=== PATIENT | male | born 1970 | race Caucasian/White ===

== ENCOUNTER → 2020-09-14 11:04 | Outpatient (BNVA) | payer OTHER, SELFPAY | PROVIDERS: PCP Internal Medicine; Visit Provider Physician Assistant Medical | DX: M50.322 Other cervical disc degeneration at C5-C6 level (principal) | CPT/HCPCS: 72050; 99203 ==

== ENCOUNTER → 2020-09-26 09:48 | Outpatient (BNVA) | payer OTHER, SELFPAY | PROVIDERS: PCP Internal Medicine; Visit Provider Physician Assistant Medical | DX: S16.1XXD Strain of muscle, fascia and tendon at neck level, subsequent encounter (principal); S29.012D Strain of muscle and tendon of back wall of thorax, subsequent encounter; S46.812D Strain of other muscles, fascia and tendons at shoulder and upper arm level, left arm, subsequent encounter; X58.XXXD Exposure to other specified factors, subsequent encounter | CPT/HCPCS: 99213 ==

== ENCOUNTER → 2020-10-05 09:34 | Outpatient (BNVA) | payer OTHER, SELFPAY | PROVIDERS: PCP Internal Medicine; Visit Provider Physician Assistant Medical | DX: M25.512 Pain in left shoulder (principal); M50.30 Other cervical disc degeneration, unspecified cervical region | CPT/HCPCS: 99214 ==

== ENCOUNTER 2020-10-10 12:46 | Outpatient (REF) | payer OTHER, SELFPAY ==
--- NOTE | 2020-10-10 12:46 | MR_ITS ---
EXAMINATION: MR CERVICAL SPINE WITHOUT CONTRAST CLINICAL INFORMATION: Left-sided shoulder pain. Lifting injury. COMPARISON: Cervical spine radiographs from 09/14/2020. TECHNIQUE: MRI of the cervical spine was obtained using routine sequences without contrast. FINDINGS: Mild degenerative retrolisthesis of C5 on C6. Otherwise, normal anatomic alignment. Advanced degenerative disc disease at C5-C6. Mild degenerative disc disease at all additional cervical levels from C2-C7. Associated mild Modic type I discogenic edema at C5-C6. No additional suspicious marrow edema. The vertebral body heights are largely maintained. No spinal cord signal abnormalities demonstrated in 2 planes. Limited evaluation of the soft tissues of the neck without demonstrated abnormalities. The flow voids of the major cervical vessels are maintained. Normal appearance of the cervicomedullary junction and visualized posterior fossa. SPINAL LEVELS: C2-C3: Mild disc-osteophyte complex. There is mild right and no left uncovertebral joint arthropathy. There is moderate right and mild left facet joint arthropathy. There is mild right and no left neural foraminal stenosis. There is no spinal canal stenosis. C3-C4: Mild disc-osteophyte complex. There is mild right and no left uncovertebral joint arthropathy. There is mild bilateral facet joint arthropathy. There is mild bilateral neural foraminal stenosis. There is no spinal canal stenosis. C4-C5: Mild disc-osteophyte complex with superimposed central disc herniation. There is mild to moderate bilateral uncovertebral joint arthropathy. There is moderate bilateral facet joint arthropathy. There is moderate bilateral neural foraminal stenosis. There is mild indentation of the ventral cord without evidence of spinal canal stenosis. C5-C6: Moderate disc-osteophyte complex. There is severe bilateral uncovertebral joint arthropathy. There is mild to moderate bilateral facet joint arthropathy. There is severe bilateral neural foraminal stenosis. There is mild spinal canal stenosis. C6-C7: Moderate disc-osteophyte complex. There is severe right and moderate left uncovertebral joint arthropathy. There is moderate bilateral facet joint arthropathy. There is severe right and moderate left neural foraminal stenosis. There is no spinal canal stenosis. C7-T1: Shallow disc-osteophyte complex. There is no uncovertebral joint arthropathy. There is mild bilateral facet joint arthropathy. There is no neural foraminal stenosis. There is no spinal canal stenosis. MR/MR cervical spine wo con IMPRESSION: Moderate multilevel degenerative spondyloarthropathy of the cervical spine as described in detail above. Most notably, there is mild spinal canal stenosis at C5-C6. Moderate to severe neural foraminal stenosis from C4-C7.
== END 2020-10-10 12:47 | disposition home or self-care (01) ==
LOC: HO.MRI 12:46
PROVIDERS: Visit Provider Internal Medicine
DX: M54.2 Cervicalgia (principal); M62.830 Muscle spasm of back
CPT/HCPCS: 72141

== ENCOUNTER → 2020-10-16 08:48 | Outpatient (BNVA) | payer OTHER, SELFPAY | PROVIDERS: Visit Provider Internal Medicine | DX: M50.10 Cervical disc disorder with radiculopathy, unspecified cervical region (principal) | CPT/HCPCS: 99214 ==

== ENCOUNTER 2020-10-30 09:53 | Outpatient (REF) | payer OTHER, SELFPAY ==
[2020-10-30 10:50] LABS: MANUAL DIFF FLAG NO
[2020-10-30 10:57] LABS: Basophils Percent Auto 0.7 % (0-2); Eosinophils Absolute Auto 0.2 X10*3/uL (0.0-0.4); Eosinophils Percent Auto 3.2 % (0-4); Hematocrit 46.5 % (42-52); Hemoglobin 15.8 g/dl (14.0-18.0); Imm Gran Abs Auto 0.02 X10*3/uL (0.00-0.03); Imm Gran Pct Auto 0.4 % (0.0-0.4); Lymphocytes Absolute Auto 2.2 X10*3/uL (1.2-4.9); Lymphocytes Percent Auto 39.7 % (20-40); Mean Corpuscular Hemoglobin 31.7 pg (27.0-33.0); Mean Corpuscular Volume 93.2 fL (80-98); Mean Platelet Volume 8.3 fL (9.4-12.4); Monocytes Absolute Auto 0.5 X10*3/uL (0.1-1.2); Neutrophils Absolute Auto 2.6 X10*3/uL (2.0-8.3); Platelet Count 254 X10*3/uL (160-400); Red Blood Count 4.99 X10*6/uL (4.60-5.80); Red Cell Distribution Width 12.6 % (11.0-16.0); White Blood Count 5.6 X10*3/uL (4.8-10.8)
[2020-10-30 11:06] LABS: Glucose Urine UA NEG (NEG); Leukocyte Esterase Urine NEG (NEG); Nitrite Urine NEG (NEG); Urine Blood TRACE (NEG); Urine Ketones NEG (NEG); Urine Protein NEG (NEG-TRACE)
[2020-10-30 11:15] LABS: Appearance Urine CLEAR; Color Urine YELLOW
[2020-10-30 11:18] LABS: RBC Urine 0-2 /HPF (0); WBC Urine 0 /HPF (0-4)
[2020-10-30 11:33] LABS: Alanine Aminotransferase 19 U/L (0-40); Albumin Level 4.6 g/dL (3.5-5.0); Alkaline Phosphatase 42 U/L (39-117); Anion Gap 15 (12-20); Aspartate Amino Transferase 25 U/L (5-37); Bilirubin Total 0.7 mg/dL (0.0-1.0); Blood Urea Nitrogen 11 mg/dL (9-16); Calcium 9.4 mg/dL (8.4-10.2); Carbon Dioxide 24 mmol/L (22-29); Chloride 104 mmol/L (96-108); Cholesterol 243 mg/dL; Estimated Glomerular Filt Rate > 60; Glucose Fasting 92 mg/dL (60-99); HDL Cholesterol 75 mg/dL; LDL Cholesterol Calculated 131 mg/dl; Potassium 4.4 mmol/l (3.3-5.1); Sodium 139 mmol/L (135-145); Total Protein 7.7 g/dL (6.5-8.0); Triglycerides 188 mg/dL
[2020-10-30 11:43] LABS: Prostate Specific Antigen 0.68 ng/mL (<0.05-4.0)
== END 2020-10-30 09:54 | disposition home or self-care (01) ==
LOC: HO.LAB 09:53
PROVIDERS: PCP Internal Medicine; Visit Provider Internal Medicine
DX: Z00.00 Encounter for general adult medical examination without abnormal findings (principal); R35.1 Nocturia; Z12.5 Encounter for screening for malignant neoplasm of prostate
CPT/HCPCS: 36415; 80053; 80061; 81001; 81003; 84153; 85025

== ENCOUNTER → 2020-10-31 09:29 | Outpatient (BNVA) | payer OTHER, SELFPAY | PROVIDERS: PCP Internal Medicine; Visit Provider Internal Medicine | DX: M79.602 Pain in left arm (principal) | CPT/HCPCS: 99213 ==

== ENCOUNTER 2020-11-01 07:00 | Outpatient (RCR) | payer OTHER, SELFPAY ==
--- NOTE | 2020-09-18 12:05 | MHC.PT.EP ---
[facility] [place] [facility] [place] [facility] [place] [facility] [address] Maria C Willoughby [address] [phone] F: [phone] F: [phone] F: [phone] F: [phone] Physical Therapy Plan of Care Date of Evaluation: 09/18/20 Date of Surgery: Diagnosis: Cervical, trapezius, and thoracic strain Assessment: 49 y/o male referred to PT with cervical, trapezius, and thoracic strain from work connection. 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 Examination shows decreased cervical AROM, decreased cervical strength and decreased strength of middle traps/lower traps/lats/shoulder flexors, noted L cervical muscle tension and impaired postural awareness. S/s consistent with strain and ?facet joint dysfunction. Recommend PT 2x/week for 3-4 weeks to address impairments, implement HEP, and optimize functional mobility. POC to include taping, STM/IASTM, lower cervical-upper thoracic joint mobilizations, scapular strengthening, and postural training. Modalities as needed. Frequency and Duration: The patient will be seen 2xweek for 3-4 weeks Short Term Goals: 2 weeks: 1. Pt will demonstrate B cervical rotation to 60 with pain < 2/10 2. Initiate HEP Longterm Goals: 4 weeks: 1. Pt will be able to don seatbelt with L UE and pain < 2/10 2. Pt will be able to lift > 40# from floor to chest 5/5 x with pain < 2/10 and proper mechanics 3. Demosntrate I of HEP and self management of sx Treatment Plan: Modalities to reduce pain, spasms and effusion. Manual therapy to restore motion and function. Therapeutic exercise to improve strength and flexibility. Neuromuscular re-education for posture and balance. Therapeutic activities to return to functional activities of daily living. Please sign and return to therapist. Thank you for your referral.
== END 2020-12-20 09:52 | disposition other institution (70) ==
LOC: HO.PTWFD 07:00
PROVIDERS: PCP Internal Medicine; Visit Provider Physician Assistant Medical
DX: S16.1XXD Strain of muscle, fascia and tendon at neck level, subsequent encounter (principal); S29.012D Strain of muscle and tendon of back wall of thorax, subsequent encounter; S46.819D Strain of other muscles, fascia and tendons at shoulder and upper arm level, unspecified arm, subsequent encounter; X58.XXXD Exposure to other specified factors, subsequent encounter; Y99.0 Civilian activity done for income or pay
CPT/HCPCS: 97012; 97014; 97035; 97110; 97140; 97161

== ENCOUNTER → 2020-11-13 11:41 | Outpatient (BNVA) | payer OTHER, SELFPAY | PROVIDERS: PCP Internal Medicine; Visit Provider Internal Medicine | DX: M79.601 Pain in right arm (principal); M54.10 Radiculopathy, site unspecified; M54.2 Cervicalgia | CPT/HCPCS: 99213 ==

== ENCOUNTER → 2020-11-30 08:27 | Outpatient (BNVA) | payer OTHER, SELFPAY | PROVIDERS: PCP Internal Medicine; Visit Provider Internal Medicine | DX: M79.603 Pain in arm, unspecified (principal); M50.322 Other cervical disc degeneration at C5-C6 level | CPT/HCPCS: 99214 ==

== ENCOUNTER → 2020-12-20 10:07 | Outpatient (BNVA) | payer OTHER, SELFPAY | PROVIDERS: PCP Internal Medicine; Visit Provider Internal Medicine | DX: M54.2 Cervicalgia (principal); G54.9 Nerve root and plexus disorder, unspecified | CPT/HCPCS: 99213 ==

== ENCOUNTER → 2021-01-18 10:17 | Outpatient (BNVA) | payer OTHER, SELFPAY | PROVIDERS: PCP Internal Medicine; Visit Provider Internal Medicine | DX: M51.16 Intervertebral disc disorders with radiculopathy, lumbar region (principal) | CPT/HCPCS: 99213 ==

== ENCOUNTER 2022-05-12 09:53 | Outpatient (REF) | payer OTHER, SELFPAY ==
[2022-05-12 10:07] LABS: MANUAL DIFF FLAG NO
[2022-05-12 10:42] LABS: Basophils Percent Auto 0.7 % (0-2); Eosinophils Absolute Auto 0.2 X10*3/uL (0.0-0.4); Eosinophils Percent Auto 3.7 % (0-4); Hematocrit 45.6 % (42.0-52.0); Hemoglobin 15.5 g/dl (14.0-18.0); Imm Gran Abs Auto 0.03 X10*3/uL (0.00-0.03); Imm Gran Pct Auto 0.5 % (0.0-0.4); Lymphocytes Percent Auto 33.1 % (20-40); Mean Corpuscular Hemoglobin 31.1 pg (27.0-33.0); Mean Corpuscular Volume 91.4 fL (80.0-98.0); Mean Platelet Volume 8.3 fL (9.4-12.4); Monocytes Absolute Auto 0.5 X10*3/uL (0.1-1.2); Monocytes Percent Auto 8.5 % (2-11); Neutrophils Absolute Auto 3.2 x10*3/uL (2.0-8.3); Neutrophils Percent Auto 53.5 % (45-73); Platelet Count 231 X10*3/uL (160-400); Red Blood Count 4.99 X10*6/uL (4.60-5.80); Red Cell Distribution Width 12.3 % (11.0-16.0)
[2022-05-12 11:11] LABS: Alanine Aminotransferase 24 U/L (0-40); Albumin Level 4.6 g/dL (3.5-5.0); Alkaline Phosphatase 46 U/L (39-117); Anion Gap 15 (12-20); Aspartate Amino Transferase 26 U/L (5-37); Bilirubin Total 0.7 mg/dL (0.0-1.0); Blood Urea Nitrogen 12 mg/dL (9-16); Calcium 9.5 mg/dL (8.4-10.2); Carbon Dioxide 24 mmol/L (22-29); Chloride 107 mmol/L (96-108); Cholesterol 261 mg/dL; Estimated Glomerular Filt Rate > 60; Glucose Random 98 mg/dL (60-115); HDL Cholesterol 69 mg/dL; LDL Cholesterol Calculated 152 mg/dl; Potassium 4.5 mmol/L (3.3-5.1); Sodium 141 mmol/L (135-145); Total Protein 7.6 g/dL (6.5-8.0); Triglycerides 201 mg/dL; Uric Acid 8.5 mg/dL (3.4-7.0)
[2022-05-12 11:22] LABS: Prostate Specific Antigen 0.69 ng/mL (<0.05-4.0)
== END 2022-05-12 09:54 | disposition home or self-care (01) ==
LOC: HO.LAB 09:53
PROVIDERS: PCP Internal Medicine; Visit Provider Internal Medicine
DX: Z00.00 Encounter for general adult medical examination without abnormal findings (principal); Z12.5 Encounter for screening for malignant neoplasm of prostate
CPT/HCPCS: 36415; 80053; 80061; 84153; 84550; 85025

== ENCOUNTER 2022-06-05 05:57 | Day surgery (SDC) | payer OTHER, SELFPAY ==
[2022-05-29 15:35] VITALS: BMI 29.2
--- NOTE | 2022-06-04 09:48 | P.CONAN_ITS ---
Documented by User: Toshia Ames NP 06/04/22 09:49 HPI - Anesthesia Eval Consult details Narrative: 51yo M for Right Hernia Repair Inguinal, Hernia Repair Umbilical [facility] Active Problems Active Problems: All Active Problems (Updated 05/12/22 @ 09:53 by Aniceto Justice MD) HTN (hypertension) (Acute) Right groin hernia (Acute) Umbilical hernia (Acute) Obstructive sleep apnea on CPAP (Acute) Spasm of back muscles (Acute) Past Medical History Medical History HTN (hypertension) Obstructive sleep apnea on CPAP Spasm of back muscles Surgical History Surgical History (Updated 06/05/22 @ 06:13 by Zoya Baird RN) History of repair of ACL Social History Social History Alcohol intake: current Alcohol intake frequency: a few times a week Patient Tobacco Use Status: Never used Tobacco Meds Allergies Allergy/AdvReac Type Severity Reaction Status Date / Time No Known Allergies Allergy Verified 06/05/22 06:13 [No Known Allergies*] Home Medications Medication Instructions Recorded Confirmed Last Taken Type lisinopril 10 mg tablet 10 mg PO DAILY 05/12/22 05/12/22 Unknown History Exam Exam Date and Time: June 04, 2022 0948 Height,Weight and Vital Signs: Height 5 ft 11 in Weight 95.254 kg Pertinent Lab Results Pertinent Lab Results: Laboratory Tests 05/12/22 05/12/22 10:06 10:06 WBC 6.0 Hgb 15.5 Hct 45.6 Plt Count 231 Sodium 141 Potassium 4.5 Chloride 107 Carbon Dioxide 24 BUN 12 Creatinine 1.10 Assessment and Plan Assessment Anesthesia Assessment: Chart Reviewed Documented by User: Johnny Will MD 06/09/22 17:55 PMFSH Past Medical History Medical History HTN (hypertension) Obstructive sleep apnea on CPAP Spasm of back muscles Family History Family history of problems with anesthesia: No Surgical History Surgical History (Updated 06/05/22 @ 06:13 by Zoya Barid RN) History of repair of ACL History of Problems with Anesthesia: No Social History Social History Alcohol intake: current Alcohol intake frequency: a few times a week Patient Tobacco Use Status: Never used Tobacco Meds Allergies Allergy/AdvReac Type Severity Reaction Status Date / Time No Known Allergies Allergy Verified 06/05/22 06:13 [No Known Allergies*] Home Medications Medication Instructions Recorded Confirmed Last Taken Type lisinopril 10 mg tablet 10 mg PO DAILY 05/12/22 05/12/22 Unknown History Exam Airway Mallampati Class: III TM Dist: >3cm Neck ROM: Full Loose/Missing/Broken Teeth: Yes (Poor dentition ) Heart: S1,S2 Lungs: b/l breath sounds Assessment and Plan Assessment Anesthesia Assessment: Anesthesia Plan Discussed Final Anesthetic Review Family History of Problems with Anesthesia: No History of Problems with Anesthesia: No NPO: Yes ASA Class: II Final Preanesthetic Review: Meds/Allgs Chart Reviewed, Consent Obtained/Reviewed and Anes Risks/Benef Reviewed Patient Risk: Intermediate Procedure Risk: Intermediate Anesthetic Plan Anesthetic Plan: MAC: (Gen Backup ) Disposition: Standard PACU
[2022-06-05] VITALS (7 sets, daily range): BP systolic 140–151; BP diastolic 87–106; PULSE 77–88; RESP 12–18; TEMP 36.3–36.8; O2SAT 95–100
[2022-06-05] MEDS: Lactated Ringers 1,000 ML 100 ML IVCONT (06:29)
[2022-06-05] MEDS: Heparin Sodium,Porcine 5,000 UNIT/ML VIAL 5000 UNIT SUBCUT (06:36)
--- NOTE | 2022-06-05 07:04 | MHC.SHP ---
Pre-Procedural Eval Section A Date of Service: 06/05/22 The patient is an INPATIENT: No The History & Physical has been completed within 30 days and I have reviewed it.: Yes Section B Chief Complaint: umbilical and inguinal hernias Allergies: Allergies Allergy/AdvReac Type Severity Reaction Status Date / Time No Known Allergies Allergy Verified 06/05/22 06:13 [No Known Allergies*] Plan I have reviewed the history and physical and performed a pertinent physical examination on my patient. No changes have occurred unless specified.
--- NOTE | 2022-06-05 07:09 | P.OP_ITS ---
Operative Note Operative Note Date of Service: 06/05/22 Narrative: Pre Op Diagnosis: RIGHT INGUINAL HERNIA; UMBILICAL HERNIA Post Op Diagnosis: Same Procedure: 1) Open repair of RIGHT Inguinal hernia repair with mesh, 2) Umbilical hernia repair Surgeon: Aniceto Justice MD Assist: Anesthesia: EBL: 5cc Specimen: Findings: Indications: The patient presented with a symptomatic right inguinal hernia. He was also noted to have an umbilical hernia which we discussed in wanted to have it repaired at the same time. The options including continued observation versus operative repair and 2nd opinion were discussed. The inherent risks to open inguinal hernia repair were discussed and options of laparoscopic or robotic/MIS repair were discussed. These risks of hernia surgery include, but are not limited to: Bleeding, infection, hernia recurrence especially if weight gain or postoperative instructions are not followed, nerve entrapment, chronic pain, mesh complications that could require reoperation. The patient seemed to understand all of these options, had their questions answered and wanted to proceed. Procedure: The patient was identified in the preoperative holding area by myself and the operative site marked by me confirming a RIGHT inguinal hernia. 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 The operative field hair had been clipped in preop holding. The patient was again identified in the operating suite and placed supine on the table. See anesthesia notes for full details regarding anesthesia care and management. An appropriate time-out was performed confirming the operative site and procedure. The patient was then widely prepped and draped in the usual manner using chlorhexidine. An ileoinguinal nerve block was performed using local mix of lidocaine & ropivicaine and a standard right inguinal herniorrhaphy incision made sharply through the skin. Dissection was carried through all layers using electric cautery for dissection and hemostasis. Additional local was infiltrated is the external oblique aponeurosis, in the external oblique aponeurosis opened sharply in the direction of its fibers to the external ring. The ilioinguinal nerve was identified and preserved/sacrificed through the dissection. The cord was mobilized at the level of the pubic tubercle and surrounded with hernia tape. The floor was inspected and a direct inguinal hernia found. Careful dissection of the spermatic cord to preserve the vessels and vas was performed to assess for indirect hernia sac, which was not present. The direct hernia sac was highly dissected, its contents reduced and the floor imbricated to restore normal anatomy and a standard Hiram tension-free herniorrhaphy performed using polypropylene mesh that was sutured to the pubic tubercle and inguinal ligament using a 2-0 Polysorb. A new internal ring was made using 2-0 polypropylene suture. The new internal ring was snug enough that it could just accommodate a tip of a hemostat. Next, the operative field was inspected for hemostasis which was good, the external oblique aponeurosis was closed with a running 0 Polysorb suture, subcutaneous tissues closed with 3-0 Polysorb and skin closed with running 4-0 Monocryl subcuticular suture. At the completion of the right inguinal hernia repair, attention was directed to the umbilical hernia After infiltrating local, an infraumbilical curvilinear incision was made sharply and carried down to the anterior fascia and umbilical ring. The umbilical ring was circumferentially dissected and the hernia dissected off the umbilical dermal skin carefully to avoid injuring the skin. The hernia contents was reduced and the defect noted to be 5mm with viable properitoneal fat present, so it was repaired with 0 polypropylene [id number]. After inspecting for hemostasis, the umbilical dermis was tacked down to the fascia, subcutaneous tissues closed with 3-0 Polysorb and skin closed with a 4-0 Monocryl subcuticular suture. The abdomen was washed and dried, Mastisol and Steri-Strips applied followed by a sterile dressing. Patient tolerated the procedure well was sent to the recovery area in stable condition. All sponge and instrument counts were correct x2. At the patient's request, I contact ___ and apprise them by telephone of the procedure. Instructions regarding activity and pain management were reviewed. Questions were answered.
[2022-06-05] MEDS: oxyCODONE HCl Immed Release 5 MG TABLET PO (09:34)
[2022-06-05] MEDS: Acetaminophen 325 MG TABLET 650 MG PO (09:34)
== END 2022-06-05 10:23 | disposition home or self-care (01) ==
PROVIDERS: PCP Internal Medicine; Visit Provider Surgery
PROC: (CPT 49505; principal; 2022-06-05 07:30)
PROC: (CPT 49505; 2022-06-05 07:30)
DX: K40.90 Unilateral inguinal hernia, without obstruction or gangrene, not specified as recurrent (principal); K42.9 Umbilical hernia without obstruction or gangrene; G47.33 Obstructive sleep apnea (adult) (pediatric); I10 Essential (primary) hypertension; M62.830 Muscle spasm of back; Z79.899 Other long term (current) drug therapy; Z99.89 Dependence on other enabling machines and devices
CPT/HCPCS: 49505; 49585; C1781; J0690; J1100; J1885; J2250; J2405; J2795; J3010

== ENCOUNTER 2022-12-12 13:05 | Day surgery (SDC) | payer OTHER, SELFPAY ==
[2022-12-12 13:30] VITALS: BMI 26.4
[2022-12-12 13:47] VITALS: BP 159/114; PULSE 95; RESP 16; TEMP 36.8; O2SAT 95
--- NOTE | 2022-12-12 13:53 | P.CONAN_ITS ---
[facility] Active Problems Active Problems: All Active Problems (Updated 06/04/22 @ 09:48 by Toshia Ames NP) Right groin hernia (Acute) Umbilical hernia (Acute) Past Medical History Medical History HTN (hypertension) Obstructive sleep apnea on CPAP Spasm of back muscles Family History Family history of problems with anesthesia: No Surgical History Surgical History History of repair of ACL History of Problems with Anesthesia: No Social History Social History Alcohol intake: current Alcohol intake frequency: a few times a week Patient Tobacco Use Status: Never used Tobacco Use of substances other than those prescribed or required for medical reasons: No Are you DNR?: No Advance Directives: No Advance Directives Information Provided: Yes Meds Allergies Allergy/AdvReac Type Severity Reaction Status Date / Time No Known Allergies Allergy Verified 06/18/22 14:55 [No Known Allergies*] Active Medications: Current Medications Sodium Biphosphate/Sodium Phosphate (Sodium Phosphate,Bee-Dibasic 133 Ml Enema) 133 ml [place] ONCE PRN PRN Reason: Poor Colonoscopy Prep Results Home Medications Medication Instructions Recorded Confirmed Last Taken Type lisinopril 10 mg tablet 10 mg PO DAILY 05/12/22 06/18/22 Unknown History Exam Exam Date and Time: December 12, 2022 1353 Height,Weight and Vital Signs: Height 5 ft 11 in Weight 86.183 kg Last Vital Signs Temp 98.3 F 12/12/22 13:47 Pulse 95 12/12/22 13:47 Resp 16 12/12/22 13:47 BP 159/114 H 12/12/22 13:47 Pulse Ox 95 12/12/22 13:47 O2 Del Method 12/12/22 13:47 Airway Mallampati Class: II TM Dist: >3cm Neck ROM: Full Loose/Missing/Broken Teeth: No Heart: rrr Lungs: cta Assessment and Plan Assessment Anesthesia Assessment: Anesthesia Plan Discussed Final Anesthetic Review Family History of Problems with Anesthesia: No History of Problems with Anesthesia: No NPO: Yes ASA Class: II Final Preanesthetic Review: No Changes in Pt Med Stat and Consent Obtained/Reviewed Patient Risk: Low Procedure Risk: Low Anesthetic Plan Anesthetic Plan: MAC: Disposition: Standard PACU
--- NOTE | 2022-12-12 13:54 | PC.NURSE ---
as discussed with md. Young on patient's bp, as per patient did not take lisinopril as discussed
[2022-12-12 15:53] VITALS: BP 140/97; PULSE 80; RESP 18; TEMP 36.3; O2SAT 96
--- NOTE | 2022-12-12 15:56 | PM.OP ---
Brief Operative Note Date of Service: 12/12/22 Pre-op diagnosis: Screening Post-op diagnosis: other (Diverticulosis) Procedure: Colonoscopy to ceum and TI Surgeon: Mikey Randall Anesthesia: MAC Was an Registration Representative used for this Procedure?: No Estimated blood loss (mL): 0 Pathology: none sent Condition: stable Disposition: PACU
[2022-12-12 16:08] VITALS: BP 157/97; PULSE 77; RESP 18; TEMP 36.6; O2SAT 98
--- NOTE | 2022-12-13 01:36 | OP_ITS ---
SURGEON: Mikey Randall MD INDICATIONS: The patient presents for evaluation of colon cancer screening. Full consent has been obtained from him for this, including risks of bleeding and perforation. PREOPERATIVE DIAGNOSIS: Colon cancer screening. POSTOPERATIVE DIAGNOSIS: PROCEDURE PERFORMED: Colonoscopy to the cecum and terminal ileum. ESTIMATED BLOOD LOSS: COMPLICATIONS: ANESTHESIA: Medication used, monitored anesthesia care. ASSISTANTS: SPECIMENS: POSTOPERATIVE DIAGNOSES: Colon cancer screening, occasional sigmoid diverticulosis, and minimal internal hemorrhoids. DESCRIPTION OF PROCEDURE: The patient was placed in the left lateral decubitus position. The digital rectal exam revealed no abnormalities. The Olympus video pediatric colonoscope was entered into the rectum and advanced easily to the cecum. Once in the cecum, I did identify normal-appearing cecal pouch with appendiceal orifice and a normal-appearing ileocecal valve. The terminal ileum was cannulated and appeared normal. The scope was withdrawn back in the colon. The entire cecum and ileocecal valve appeared normal. The scope was slowly withdrawn assessing all mucosal surfaces carefully. Preparation was excellent. I did not visualize any polyps, colitis, or angiodysplasia. There were occasional diverticula noted in the sigmoid colon. In the rectum, the scope was retroflexed visualizing minimal internal hemorrhoids, but no other pathology. The rectal mucosa appeared normal. Scope was straightened and withdrawn from the patient. He tolerated the procedure well and was returned to recovery area in stable condition. IMPRESSION: 1. Occasional sigmoid diverticulosis. 2. Minimal internal hemorrhoids. 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 He will otherwise see me on a p.r.n. basis. MD GETACHEW Cole/ESTHER / [phone] MTDD
== END 2022-12-12 16:40 | disposition home or self-care (01) ==
PROVIDERS: PCP Internal Medicine; Visit Provider Internal Medicine
PROC: 0DJD8ZZ Inspection of Lower Intestinal Tract, Via Natural or Artificial Opening Endoscopic (ICD-10-PCS; CPT 45378; principal; 2022-12-12 14:40)
DX: Z12.11 Encounter for screening for malignant neoplasm of colon (principal); K57.30 Diverticulosis of large intestine without perforation or abscess without bleeding; K64.8 Other hemorrhoids; I10 Essential (primary) hypertension; G47.33 Obstructive sleep apnea (adult) (pediatric); Z99.89 Dependence on other enabling machines and devices; Z79.899 Other long term (current) drug therapy
CPT/HCPCS: 45378

== ENCOUNTER → 2023-08-05 09:38 | Outpatient (BNVA) | payer OTHER, SELFPAY | PROVIDERS: PCP Internal Medicine; Visit Provider Physician Assistant | DX: Z48.815 Encounter for surgical aftercare following surgery on the digestive system (principal) | CPT/HCPCS: 99203 ==

== ENCOUNTER 2023-08-11 13:44 | Outpatient (AMB) | payer OTHER, SELFPAY ==
--- NOTE | 2023-08-11 13:45 | A.OFFVIS_ITS ---
Intake Vital Signs 08/11/23 13:51 Height 5 ft 11 in Weight 197 lb 1.492 oz BMI 27.5 BP 151/92 H Blood Pressure Location Lt brachial Position Sitting Pulse 78 Pulse Source Pulse Oximeter Temp 97.0 F Temp Source Temporal Artery Scan Intake Visit Reasons: ? 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 work and felt a pop in groin area and states umbilicus seems to be protruding Geographic Information Systems Analyst Required: No Photolith Operator: Photolith Operator offered & declined Allergies No Known Allergies [No Known Allergies*] Allergy (Verified 06/18/22 14:55) Medication List - Last Reconciled 08/11/23 by Aniceto Justice MD ibuprofen 600 mg PO Q6H lisinopril 10 mg PO DAILY HPI HPI Comments History of Present Illness Details The patient is a 52-year-old gentleman who 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 The patient had an incidental umbilical hernia that was pointed out and he wanted it repaired at the same time. Primary closure of the umbilical hernia without mesh was performed due to a 6 mm defect; open right inguinal hernia with Bard polypropylene mesh was used to repair a direct inguinal hernia with Hiram repair. 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 He was evaluated at [facility] and sent here given ongoing pain. Patient reports pain with activity and coughing. We discussed options at today's visit and the patient noted that he feels comfortable returning to work at full duty and declined a work note. We discussed our recommendation for light duty, however he declined. [facility] Medical History (Updated 08/11/23 @ 14:27 by Aniceto Justice MD) HTN (hypertension) Obstructive sleep apnea on CPAP Spasm of back muscles Surgical History Hx of bilateral inguinal hernia repair History of repair of ACL Social History Alcohol intake: current Alcohol intake frequency: a few times a week Patient Tobacco Use Status: Never used Tobacco Review of Systems Const All systems reviewed & are unremarkable except as noted in HPI and below Reports as per HPI Physical Exam Vital Signs: Last Vital Signs Temp 97.0 F 08/11/23 13:51 Pulse 78 08/11/23 13:51 BP 151/92 H 08/11/23 13:51 BMI result Body Mass Index 27.5 On exam he is nontoxic The patient is examined standing and on Valsalva, I do not appreciate a recurrence at his umbilicus. He reports subjective tenderness to palpation. Patient Valsalva it several times and while there is some thickening in the right groin in some reported tenderness, I do not appreciate a hernia recurrence at this time. The patient reports maximal tenderness near his new internal ring. Assessment & Plan Assessment & Plan (1) Right groin pain: Code(s): R10.31 - Right lower quadrant pain Plan I reviewed options with the patient and offered a work note limiting him to light duty, however, after discussion, he stated that he felt he could return to full duty without restriction. We discussed a course of NSAIDs and I sent a prescription for ibuprofen, 600 mg q.6 hours to be taken with extra-strength Tylenol. Possibility of stomach irritation was discussed and the patient understands he needs to take this medication with food. I reassured the patient that while I do not feel any hernia recurrence on today's exam, an occult injury could be present and I have recommended a CT with Valsalva and have ordered at and will see him afterwards to review the CT. If the patient clinically worsens or changes his mind regarding return to work, he will contact the office otherwise, will see him for 30 minute appointment after his CT with Valsalva is performed. Orders: Orders CT abdomen pelvis wo IV con Today R10.31 - Right lower quadrant pain Medications: New ibuprofen Take with 2 extra-strength Tylenol/acetaminophen 600 mg PO Q6H 30 tabs 0RF Pain Coding Level of Care Code Est Pt Level 4 (87214) Diagnoses Right groin pain R10.31
[2023-08-11 13:51] VITALS: BP 151/92; PULSE 78; TEMP 36.1; BMI 27.5
== END 2023-08-11 14:31 | disposition home or self-care (01) ==
PROVIDERS: PCP Internal Medicine; Referring Provider Physician Assistant; Visit Provider Surgery
DX: R10.31 Right lower quadrant pain (principal)
CPT/HCPCS: 99214

== ENCOUNTER → 2023-08-11 13:44 | Outpatient (BNVA) | payer OTHER, SELFPAY | PROVIDERS: PCP Internal Medicine; Referring Provider Physician Assistant; Visit Provider Surgery | DX: R10.31 Right lower quadrant pain (principal) | CPT/HCPCS: 99212 ==

== ENCOUNTER 2023-09-14 15:04 | Outpatient (REF) | payer OTHER, SELFPAY ==
--- NOTE | ~2023-09-14 | CT_ITS ---
EXAMINATION: CT ABDOMEN AND PELVIS WITHOUT CONTRAST CLINICAL INFORMATION: Right lower quadrant pain. COMPARISON: None available. TECHNIQUE: Multidetector volumetric imaging was performed from the superior aspect of the liver through the pubic symphysis. Sagittal and coronal reformatted images were obtained on the technologist's workstation. This CT examination was performed using dose optimization techniques as appropriate, variously including the following: *Automated exposure control *Adjustment of mA and/or kV according to patient size (this includes techniques or standardized protocols for targeted exams where dose is matched to indication/reason for exam; i.e. extremities or head) *Use of iterative reconstruction technique DLP: 531 mGy-cm FINDINGS: LUNG BASES: Small hiatal hernia. LIVER, GALLBLADDER, AND BILIARY TREE: The liver is decreased in attenuation. No biliary ductal dilatation is present. The gallbladder is contracted. PANCREAS: Unremarkable. SPLEEN: Unremarkable. ADRENAL GLANDS: Unremarkable. KIDNEYS AND URETERS: The kidneys are normal in size, shape, and attenuation. Punctate nonobstructing calculus lower pole left kidney. No hydronephrosis seen. No perinephric stranding. BLADDER: Unremarkable. GASTROINTESTINAL TRACT: Subtle inflammatory changes surrounding a diverticulum of the descending colon. No small bowel obstruction. ABDOMINAL WALL: Fat-containing left inguinal hernia. Postsurgical changes from prior right inguinal hernia repair. No recurrent hernia. LYMPH NODES: No bulky abdominal or pelvic lymphadenopathy. VASCULAR: Normal caliber abdominal aorta. PELVIC VISCERA: Enlarged prostate gland. OSSEOUS STRUCTURES: No destructive bone lesions. CT/CT abdomen pelvis wo IV con IMPRESSION: Fat-containing left inguinal hernia. Punctate nonobstructing left renal calculus. No hydronephrosis. Hepatic steatosis.
== END 2023-09-14 15:05 | disposition home or self-care (01) ==
LOC: HO.CT 15:04
PROVIDERS: PCP Internal Medicine; Visit Provider Surgery
DX: R10.31 Right lower quadrant pain (principal)
CPT/HCPCS: 74176

== ENCOUNTER 2023-09-16 14:03 | Outpatient (AMB) | payer OTHER, SELFPAY ==
--- NOTE | 2023-09-16 14:08 | MHC.OFFVIS ---
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 The patient had an incidental umbilical hernia that was pointed out and he wanted it repaired at the same time. Primary closure of the umbilical hernia without mesh was performed due to a 6 mm defect; open right inguinal hernia with Bard polypropylene mesh was used to repair a direct inguinal hernia with Hiram repair. 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 He was evaluated at [facility] and sent here given ongoing pain. Since his visit, he is take in the prescribed ibuprofen and notes some interval improvement but still occasional sharp pain that is spontaneous and not always related to exertion. He denies any left inguinal pain at the time of the incident and denies any left inguinal pain today. He is here today, 09/16/[address] of the abdomen and pelvis. Since last visit, he reports [facility] Medical History (Updated 09/16/23 @ 14:28 by Aniceto Justice MD) HTN (hypertension) Obstructive sleep apnea on CPAP Spasm of back muscles Surgical History Hx of bilateral inguinal hernia repair History of repair of ACL Social History Alcohol intake: current Alcohol intake frequency: a few times a week Patient Tobacco Use Status: Never used Tobacco Physical Exam On exam he is nontoxic The patient is examined standing and on Valsalva, I do not appreciate a recurrence at his umbilicus. He reports subjective tenderness to palpation. Patient Valsalva'd it several times and while there is some thickening in the right groin in some reported tenderness, I do not appreciate a RIGHT inguinal hernia recurrence at this time. The previous tenderness has improved on exam & per pt. A new LEFT inguinal hernia that's reducible & nontender is noted on exam with the patient standing Results Reviewed Results Reviewed: 09/14/23 CT A/P images & report are reviewed: IMPRESSION: Fat-containing left inguinal hernia. Punctate nonobstructing left renal calculus. No hydronephrosis. Hepatic steatosis Assessment & Plan Assessment & Plan (1) Right groin pain: Code(s): R10.31 - Right lower quadrant pain (2) Obstructive sleep apnea on CPAP: Code(s): G47.33 - Obstructive sleep apnea (adult) (pediatric); Z99.89 - Dependence on other enabling machines and devices (3) HTN (hypertension): Code(s): I10 - Essential (primary) hypertension (4) Left inguinal hernia: Code(s): K40.90 - Unilateral inguinal hernia, without obstruction or gangrene, not specified as recurrent Plan The patient notes interval improvement, but the RIGHT groin pain presenting after exertion at work & possible RIGHT groin strain inciting injury may have caused injury that may progress. While it is improved with NSAIDs and avoiding heavy activity, explained that I cannot guarantee that it will not flare and need to consider additional intervention such as pain management injection. Given this, options of management were discussed: I have recommended that the patient contact me if he clinically worsens and we can always consider pain management for an injection regarding an ileoinguinal block if the pain interferes with daytime activities or nighttime sleeping. In the interim, the patient seems to have developed a small asymptomatic left inguinal hernia. It is unclear whether not this was related to the injury described above. We discussed the pros and cons of repair versus continued observation and will continue to observe the left side for now. If the patient has worsening pain with either inguinal area, he will contact me, otherwise all see him back in 3 months for 30 minute visit. Coding Level of Care Code Est Pt Level 4 (02131) Diagnoses Right groin pain R10.31 Obstructive sleep apnea on CPAP G47.33; Z99.89 HTN (hypertension) I10 Left inguinal hernia K40.90
[2023-09-16 14:12] VITALS: BP 157/97; PULSE 78; TEMP 35.4; O2SAT 99; BMI 28.2
== END 2023-09-16 14:28 | disposition home or self-care (01) ==
PROVIDERS: PCP Internal Medicine; Visit Provider Surgery
DX: R10.31 Right lower quadrant pain (principal); G47.33 Obstructive sleep apnea (adult) (pediatric); Z99.89 Dependence on other enabling machines and devices; I10 Essential (primary) hypertension; K40.90 Unilateral inguinal hernia, without obstruction or gangrene, not specified as recurrent
CPT/HCPCS: 99214

== ENCOUNTER → 2023-09-16 14:03 | Outpatient (BNVA) | payer OTHER, SELFPAY | PROVIDERS: PCP Internal Medicine; Visit Provider Surgery | DX: R10.31 Right lower quadrant pain (principal); K40.90 Unilateral inguinal hernia, without obstruction or gangrene, not specified as recurrent; I10 Essential (primary) hypertension; G47.33 Obstructive sleep apnea (adult) (pediatric); Z99.89 Dependence on other enabling machines and devices | CPT/HCPCS: 99212 ==

== ENCOUNTER 2024-03-21 12:03 | Emergency (ER) | payer OTHER, SELFPAY ==
--- NOTE | ~2024-03-21 | XR_ITS ---
EXAMINATION: XR CHEST CLINICAL INFORMATION: Dyspnea. Hypertension. COMPARISON: Chest radiograph dated 07/21/2011. TECHNIQUE: 2 views of the chest were obtained. FINDINGS: Heart size is normal. Both lungs are clear. There is no pleural effusion. No pneumothorax. No acute osseous abnormality. Mild degenerative changes of thoracic spine. XR/XR chest 2V IMPRESSION: No acute cardiopulmonary disease.
--- NOTE | ~2024-03-21 | CT_ITS ---
EXAMINATION: CT ANGIOGRAM OF THE CHEST WITH AND WITHOUT CONTRAST (CT PULMONARY ANGIOGRAM FOR PE) CLINICAL INFORMATION: Reason for Exam chest pain, dyspnea, tachycardic, elevated ddimer COMPARISON: Chest radiograph dated 03/21/2024. TECHNIQUE: Prior to contrast administration, noncontrast localization images were obtained. Subsequently, multidetector volumetric imaging was performed from the thoracic inlet to below the diaphragms following the administration of 80 mL Omnipaque 350 intravenous contrast. No contrast reaction reported Sagittal, coronal, and MIP oblique sagittal reformatted images were obtained on the CT workstation, uploaded to PACS, and reviewed. This CT examination was performed using dose optimization techniques as appropriate, variously including the following: *Automated exposure control *Adjustment of mA and/or kV according to patient size (this includes techniques or standardized protocols for targeted exams where dose is matched to indication/reason for exam; i.e. extremities or head) *Use of iterative reconstruction technique Total exam dose-length product 346 mGy-cm FINDINGS: QUALITY OF STUDY/CONTRAST BOLUS: Satisfactory. PULMONARY ARTERIES: No pulmonary emboli. THORACIC AORTA: No aneurysm. LUNG: No focal consolidation, nodules or masses. The trachea and central airways are widely patent. PLEURA: No pleural effusion or pneumothorax. MEDIASTINUM: Normal heart size. No pericardial effusion. No hilar or mediastinal lymphadenopathy. No evidence of septal bowing or right heart strain. The thyroid gland is normal in appearance. CORONARY ARTERY CALCIFICATION: Mild coronary artery calcification is noted. CHEST WALL/AXILLA: No axillary or internal mammary lymphadenopathy. OSSEOUS STRUCTURES: No acute or suspicious osseous abnormality. UPPER ABDOMEN: Unremarkable. No reflux of contrast into the hepatic veins to suggest elevated right heart pressures. CT/CT angio chest PE protocol IMPRESSION: No pulmonary embolism. The lungs are clear. No pleural effusion. VTE: negative
[2024-03-21 12:20] VITALS: BP 160/110; BP 210/140; PULSE 101; RESP 20; TEMP 36.7; O2SAT 97; BMI 29.0
--- NOTE | 2024-03-21 12:25 | ECG_ITS ---
Test Reason : CHEST PAIN Blood Pressure : / mmHG Vent. Rate : 099 BPM Atrial Rate : 099 BPM P-R Int : 154 ms QRS Dur : 080 ms QT Int : 338 ms P-R-T Axes : 041 003 030 degrees QTc Int : 433 ms Normal sinus rhythm Normal ECG No previous ECGs available Referred By: Juliana Salgado Electronically Signed By:MACARENA CHOUDHURY
--- NOTE | 2024-03-21 12:30 | PC.NURSE ---
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 Per ems report pt's b/p 200s/140s, he reports that he takes Lisinopril 5 mg but forgot to take it this morning. On arrival to the ed pt reported 5/10 aching chest pain b/p 160/110 and reports feeling like I can't catch my breath . Pt winded while talking to him. 20g iv inserted L forearm, pt tolerated well.
--- NOTE | 2024-03-21 12:40 | ED_ITS ---
HPI - General Adult General Chief complaint: Chest Pain Stated complaint: SHAKEY,UNABLE TO CATCH BREATH,BP 210/140 Time Seen by Provider: 03/21/24 12:25 Source: patient Mode of arrival: ambulatory Limitations: no limitations History of Present Illness HPI narrative: Patient is a 53-year-old male with history of HTN, high cholesterol presenting to the emergency department with shortness of breath, chest pain and elevated blood pressures. 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 Feels he is unable to take full breath in. He then developed mild chest pain which he rates at 5/10 which has since resolved. States he occasionally forgets to take his blood pressure medication and forgot to take it this morning. Denies history of blood clots, denies recent calf pain/swelling. Denies fevers or recent URI symptoms. MD complaint: chest pain, elevated BP Onset (ago): hour(s) Location: chest Radiation: non-radiation Severity scale (1-10): 5 Quality: aching Pain Consistency: now resolved Exacerbating factors: movement Associated symptoms: shortness of breath Treatments prior to arrival: none Related Data Home Medications ?Medication ?Instructions ?Recorded ?Confirmed lisinopril 10 mg tablet 10 mg PO DAILY 05/12/22 08/11/23 Previous Rx's ?Medication ?Instructions ?Recorded ibuprofen 600 mg tablet 600 mg PO Q6H Pain #30 tabs 08/11/23 Allergies Allergy/AdvReac Type Severity Reaction Status Date / Time No Known Allergies Allergy Verified 03/21/24 12:47 [No Known Allergies*] Review of Systems 2 Review of Systems: As per HPI. Yes all other systems are reviewed and are negative Constitutional: Constitutional: Reports as per HPI [facility] Past Medical History Medical History (Updated 03/21/24 @ 18:43 by Juliana Salgado NP) HTN (hypertension) Obstructive sleep apnea on CPAP Spasm of back muscles Surgical History Hx of bilateral inguinal hernia repair History of repair of ACL Social History Social History Alcohol intake: current Alcohol intake frequency: a few times a week Patient Tobacco Use Status: Never used Tobacco Advance Directives: No Advance Directives Information Provided: Yes Physical Exam ED Vital Signs: Vital Signs - 24 hr 03/21/24 12:20 03/21/24 12:53 03/21/24 12:57 Temperature 98.1 F Pulse Rate 101 H 100 104 H Respiratory Rate 20 12 17 Blood Pressure 160/110 H 152/108 H 174/102 H Pulse Oximetry 97 Oxygen Delivery Method Room Air 03/21/24 15:10 Temperature 98.2 F Pulse Rate 87 Respiratory Rate 16 Blood Pressure 152/103 H Pulse Oximetry 98 Oxygen Delivery Method Room Air BMI result Body Mass Index 29.0 Vital signs have been reviewed and appear to be correct. Blood pressure elevated. Heart rate mildly tachycardic. Respiratory rate normal. Temperature normal. Oxygen saturation normal. Const General: cooperative, healthy appearing and no acute distress Orientation/consciousness: oriented to person, oriented to place, oriented to time and patient oriented x3 Limitations: no limitations HENMT Head: Yes normocephalic and Yes atraumatic Ears: external ears normal General nose exam: Normal external nose present Face and sinus: Yes face symmetric Mouth: oropharynx normal and moist mucous membranes Throat: Yes uvula midline Eyes Pupils: Equal, round and reactive pupils present Neck Neck: Yes normal visual inspection and Yes supple Resp Effort & Inspection: normal respiratory effort and able to speak in complete sentences Auscultation: clear to auscultation bilaterally Cardio Rate: regular rate Rhythm: regular rhythm Heart sounds: S1 normal heart sound present and S2 normal heart sound present Peripheral pulses: Peripheral pulses 2+ throughout GI Palpation (GI): Soft to palpation and nontender Auscultation: normoactive bowel sounds General: Yes no CVA tenderness Back/Spine/Pelvis Back: no CVA tenderness Skin General skin exam: elasticity normal and turgor normal Neuro General: oriented to person, oriented to place, oriented to time, patient oriented x3, moves all extremities, no focal motor deficits and CN's II-XI intact bilaterally Cranial nerves: Yes Equal, round and reactive pupils present Cognition (Neuro): normal cognition Extrem General: Yes full ROM, Yes no pedal edema and Yes no calf tenderness Psych Mental Status: mental status grossly normal Affect: normal affect Thought process: Normal thought process present Medications Administered Discontinued Medications Generic Name Dose Route Start Last Admin Trade Name Freq PRN Reason Stop Dose Admin Aspirin 324 mg 03/21/24 12:40 03/21/24 12:51 Aspirin 81 Mg Tab.Chew PO 03/21/24 12:41 324 mg ONCE ONE Administration Iohexol 100 ml 03/21/24 15:17 03/21/24 15:17 Iohexol 350 Mg/Ml 100 Ml Infus..Btl IV 03/21/24 15:18 65 ml ONCE ONE Administration Lisinopril 10 mg 03/21/24 12:40 03/21/24 12:52 Lisinopril 10 Mg Tablet PO 03/21/24 12:41 10 mg ONCE ONE Administration Protocol Medical Decision Making Medical Decision Making [facility] Narrative: Patient is a 53-year-old male with history of HTN, high cholesterol presenting to the emergency department with shortness of breath, chest pain and elevated blood pressures. On exam patient is awake, A+Ox3, BP elevated, mildly tachycardic, VS otherwise WNL, afebrile, normal neurological exam without focal deficits, physical exam findings as above. Given reported symptoms and physical exam findings, initial differential includes ACS/KS, PE, pneumothorax, HTN. Unlikely aortic dissection, esophageal rupture, tamponade, pericarditis Labs notable for initial troponin negative, will obtain repeat to assess for delta, age-adjusted D-dimer elevated, CT PE ordered. X-ray chest notable for no acute abnormalities. CT PE notable for no evidence of PE. My interpretation is in agreement with the radiologist's interpretation. No delta on repeat troponin. HEART score 3. Blood pressure improved with medication in the ED. Feel patient is stable for discharge home at this time. Will refer patient to [facility] for clearance to return to full duty. Patient states he is off for the next several days. Instructed patient to follow-up with his primary care provider regarding his elevated blood pressure readings. Will refer to Cardiology as well for any ongoing symptoms. Return precautions discussed at bedside. Patient verbalized understanding of and agreement with plan. Differential Diagnosis Differential Diagnoses: The differential diagnosis associated with the presentation includes As per [facility] Admission/Observation Consideration of admission/observation: Escalation of care including admission/observation considered Patient would have been admitted to the hospital had their work up had any findings where hospital admission was appropriate and their clinical presentation warranted hospital admission. Lab Data [facility] Lab Attestation statement: I reviewed the patient's lab results. As per [facility]. 03/21/24 13:07 Labs: Lab Results 03/21/24 03/21/24 Range/Units 13:07 18:04 WBC 10.1 (4.8-10.8) X10*3/uL RBC 4.87 (4.60-5.80) X10*6/uL Hgb 15.3 (14.0-18.0) g/dl Hct 44.3 (42.0-52.0) % MCV 91.0 (80.0-98.0) fL MCH 31.4 (27.0-33.0) pg MCHC 34.5 (31.0-36.0) g/dl RDW 12.0 (11.0-16.0) % Plt Count 237 (160-400) X10*3/uL MPV 8.1 L (9.4-12.4) fL Immature Gran % (Auto) 0.6 H (0.0-0.4) % Neut % (Auto) 77.0 H (45-73) % Lymph % (Auto) 14.2 L (20-40) % Rock % (Auto) 7.6 (2-11) % Eos % (Auto) 0.3 (0-4) % Baso % (Auto) 0.3 (0-2) % Lymph # (Auto) 1.4 (1.2-4.9) X10*3/uL Rock # (Auto) 0.8 (0.1-1.2) X10*3/uL Eos # (Auto) 0.0 (0.0-0.4) X10*3/uL Baso # (Auto) 0.0 (0.0-0.2) X10*3/uL Abs Immat Gran (auto) 0.06 H (0.00-0.03) X10*3/uL Absolute Neuts (auto) 7.8 (2.0-8.3) x10*3/uL Absolute Nucleated RBC 0.000 (0.0-0.012) X10*3/uL Nucleated RBC % (auto) 0.0 (0.0-0.2) /100WBC PT 10.5 L (11.1-13.3) SEC INR 0.9 (0.9-1.1) D-Dimer High Sensitivty 277 NG/ML Troponin I High Sens < 2.7 4.8 D (<3.5-35.0) ng/L Independent Interpretation I performed an independent interpretation of an: EKG (Normal sinus rhythm, rate 99 beats per minute, normal TN interval and QTC) and Plain X-Ray Interpretation: Normal chest x-ray CTA chest does not show evidence of PE Radiology Impression Discussion of test interpretation with radiology: I have reviewed the radiologist's reading. Radiologist Impression: XR/XR chest 2V IMPRESSION: No acute cardiopulmonary disease. CT/CT angio chest PE protocol IMPRESSION: No pulmonary embolism. The lungs are clear. No pleural effusion. VTE: negative Independent Historian Clinical information obtained from an independent historian. History obtained from or confirmed by: Spouse External Record Review External record reviewed: Inpatient record, Office record and Outpatient record Chronic Conditions Patient?s care impacted by: Hypertension Scores Heart Score History: -1- moderately suspicious ECG: -0- normal Age: -1- >45 - <65 Risk factory: -1- 1 or 2 risk factors Troponin: -0- < or = normal limit Score: 3 Risk: 1.7% Discharge Plan Discharge Clinical Impression: HTN (hypertension), Shortness of breath, Chest pain Patient Disposition: Home, Self-Care Instructions: Chest Pain (DC), Hypertension (ED), Shortness of Breath (ED) Additional Instructions: You were evaluated in the emergency department today for chest pain and shortness of breath as well as elevated blood pressure readings. Your blood pressure improved with medication in the emergency department. Your evaluation including labs, x-ray and CT scan did not show evidence of conditions requiring emergent medical treatment at this time. We recommend that you follow-up with your primary care provider to discuss management of your blood pressure. We also recommend that you get a blood pressure cuff for monitoring your blood pressure at home and you should check this daily and keep track of the readings to discuss with your PCP. Please follow-up with [facility] [place] for clearance to return to work. Their number is [phone]. Return to the emergency department if you develop chest pain, shortness of breath or difficulty breathing, fever, palpitations or any other concerning symptoms. Follow up with cardiology for any ongoing symptoms. Prescriptions: No Action lisinopril 10 mg tablet 10 mg PO DAILY ibuprofen 600 mg tablet 600 mg PO Q6H Qty: 30 0RF Rx Instructions: Take with 2 extra-strength Tylenol/acetaminophen Referrals: [facility] [Provider Group] Stand Alone Forms: Work/School Release Print Language: Eritrean
[2024-03-21] MEDS: Aspirin 81 MG TAB.CHEW 324 MG PO (12:51)
[2024-03-21] MEDS: lisinopriL 10 MG TABLET PO (12:52)
[2024-03-21 12:53] VITALS: BP 152/108; PULSE 100; RESP 12
[2024-03-21 12:57] VITALS: BP 174/102; PULSE 104; RESP 17
[2024-03-21 13:11] LABS: MANUAL DIFF FLAG NO
[2024-03-21 13:12] LABS: Basophils Percent Auto 0.3 % (0-2); Eosinophils Percent Auto 0.3 % (0-4); Hematocrit 44.3 % (42.0-52.0); Hemoglobin 15.3 g/dl (14.0-18.0); Imm Gran Abs Auto 0.06 X10*3/uL (0.00-0.03); Imm Gran Pct Auto 0.6 % (0.0-0.4); Lymphocytes Absolute Auto 1.4 X10*3/uL (1.2-4.9); Lymphocytes Percent Auto 14.2 % (20-40); Mean Corpuscular HGB Conc 34.5 g/dl (31.0-36.0); Mean Corpuscular Hemoglobin 31.4 pg (27.0-33.0); Mean Platelet Volume 8.1 fL (9.4-12.4); Monocytes Absolute Auto 0.8 X10*3/uL (0.1-1.2); Monocytes Percent Auto 7.6 % (2-11); Neutrophils Absolute Auto 7.8 x10*3/uL (2.0-8.3); Platelet Count 237 X10*3/uL (160-400); Red Blood Count 4.87 X10*6/uL (4.60-5.80); White Blood Count 10.1 X10*3/uL (4.8-10.8)
[2024-03-21 13:19] LABS: INTERNATIONAL NORM RATIO 0.9 (0.9-1.1); Prothrombin Time 10.5 SEC (11.1-13.3)
[2024-03-21 13:40] LABS: Troponin-I High Sensitivity < 2.7 ng/L (<3.5-35.0)
[2024-03-21 13:49] LABS: D Dimer High Sensitivity 277 NG/ML
[2024-03-21 15:10] VITALS: BP 152/103; PULSE 87; RESP 16; TEMP 36.8; O2SAT 98
[2024-03-21] MEDS: iohexoL 350 MG/ML 100 ML INFUS..BTL IV (15:17)
[2024-03-21 18:34] LABS: Troponin-I High Sensitivity 4.8 ng/L (<3.5-35.0)
[2024-03-21 19:39] VITALS: BP 117/68; PULSE 86; RESP 16; TEMP 36.7; O2SAT 97
== END 2024-03-21 19:40 | disposition home or self-care (01) ==
PROVIDERS: Registered Nurse Emergency; Emergency Provider Emergency Medicine; PCP Internal Medicine
DX: R07.89 Other chest pain (principal); R06.02 Shortness of breath; I10 Essential (primary) hypertension; Z79.899 Other long term (current) drug therapy
CPT/HCPCS: 36415; 71046; 71275; 84484; 85025; 85379; 85610; 93005; 99283; 99284; Q9967

== ENCOUNTER → 2024-03-21 12:25 | Outpatient (BNV) | payer OTHER, SELFPAY | PROVIDERS: Emergency Provider Emergency Medicine; PCP Internal Medicine; Visit Provider Internal Medicine | DX: R07.9 Chest pain, unspecified (principal) | CPT/HCPCS: 93010 ==

== ENCOUNTER → 2024-03-24 13:02 | Outpatient (BNVA) | payer OTHER, SELFPAY | PROVIDERS: PCP Internal Medicine; Visit Provider Physician Assistant Medical | DX: R06.02 Shortness of breath (principal); R07.89 Other chest pain; I16.0 Hypertensive urgency | CPT/HCPCS: 99203 ==

== ENCOUNTER 2024-03-24 13:48 | Outpatient (REF) | payer OTHER, SELFPAY ==
[2024-03-24 14:10] LABS: MANUAL DIFF FLAG NO
[2024-03-24 14:17] LABS: Basophils Percent Auto 0.5 % (0-2); Eosinophils Percent Auto 0.5 % (0-4); Hematocrit 44.5 % (42.0-52.0); Hemoglobin 15.5 g/dl (14.0-18.0); Imm Gran Abs Auto 0.04 X10*3/uL (0.00-0.03); Imm Gran Pct Auto 0.5 % (0.0-0.4); Lymphocytes Absolute Auto 2.2 X10*3/uL (1.2-4.9); Mean Corpuscular HGB Conc 34.8 g/dl (31.0-36.0); Mean Corpuscular Hemoglobin 31.9 pg (27.0-33.0); Mean Corpuscular Volume 91.6 fL (80.0-98.0); Mean Platelet Volume 8.2 fL (9.4-12.4); Monocytes Absolute Auto 0.6 X10*3/uL (0.1-1.2); Monocytes Percent Auto 7.3 % (2-11); Neutrophils Absolute Auto 5.5 x10*3/uL (2.0-8.3); Neutrophils Percent Auto 65.2 % (45-73); Platelet Count 271 X10*3/uL (160-400); Red Blood Count 4.86 X10*6/uL (4.60-5.80); White Blood Count 8.4 X10*3/uL (4.8-10.8)
[2024-03-24 14:18] LABS: Basophils Percent Auto 0.3 % (0-2); Eosinophils Absolute Auto 0.1 X10*3/uL (0.0-0.4); Eosinophils Percent Auto 0.6 % (0-4); Hematocrit 43.9 % (42.0-52.0); Hemoglobin 15.2 g/dl (14.0-18.0); Imm Gran Abs Auto 0.03 X10*3/uL (0.00-0.03); Imm Gran Pct Auto 0.3 % (0.0-0.4); Lymphocytes Absolute Auto 2.3 X10*3/uL (1.2-4.9); Lymphocytes Percent Auto 26.2 % (20-40); Mean Corpuscular HGB Conc 34.6 g/dl (31.0-36.0); Mean Corpuscular Hemoglobin 31.9 pg (27.0-33.0); Mean Corpuscular Volume 92.2 fL (80.0-98.0); Mean Platelet Volume 8.2 fL (9.4-12.4); Monocytes Absolute Auto 0.6 X10*3/uL (0.1-1.2); Monocytes Percent Auto 7.4 % (2-11); Neutrophils Absolute Auto 5.7 x10*3/uL (2.0-8.3); Neutrophils Percent Auto 65.2 % (45-73); Platelet Count 267 X10*3/uL (160-400); Red Blood Count 4.76 X10*6/uL (4.60-5.80); White Blood Count 8.7 X10*3/uL (4.8-10.8)
[2024-03-24 14:26] LABS: Alanine Aminotransferase 32 U/L (0-40); Albumin Level 4.8 g/dL (3.5-5.0); Alkaline Phosphatase 44 U/L (39-117); Anion Gap 16 (12-20); Aspartate Amino Transferase 35 U/L (5-37); Blood Urea Nitrogen 12 mg/dL (9-16); Calcium 10.2 mg/dL (8.4-10.2); Carbon Dioxide 23 mmol/L (22-29); Chloride 103 mmol/L (96-108); Cholesterol 167 mg/dL (<200); Estimated Glomerular Filt Rate > 60; Glucose Fasting 90 mg/dL (60-99); HDL Cholesterol 65 mg/dL (>40); LDL Cholesterol Calculated 88 mg/dL (<100); Sodium 138 mmol/L (135-145); Total Protein 8.1 g/dL (6.5-8.0); Triglycerides 70 mg/dL (<150)
[2024-03-24 14:34] LABS: Alanine Aminotransferase 32 U/L (0-40); Albumin Level 4.7 g/dL (3.5-5.0); Alkaline Phosphatase 45 U/L (39-117); Anion Gap 16 (12-20); Aspartate Amino Transferase 32 U/L (5-37); Blood Urea Nitrogen 12 mg/dL (9-16); Carbon Dioxide 23 mmol/L (22-29); Chloride 103 mmol/L (96-108); Estimated Glomerular Filt Rate > 60; Glucose Random 91 mg/dL (60-115); Potassium 3.9 mmol/L (3.3-5.1); Sodium 138 mmol/L (135-145)
[2024-03-24 14:50] LABS: Prostate Specific Antigen 0.86 ng/mL (<0.05-4.0)
[2024-03-24 14:51] LABS: Free T4 (Free Thyroxine) 0.94 ng/dL (0.71-1.85); Insulin 5 uU/mL (2-29); Thyroid Stimulating Hormone 1.91 uIU/mL (0.32-4.0); Vitamin D 25-OH Total 28.1 ng/mL (>30)
[2024-03-24 15:02] LABS: Folate 12.4 ng/mL (> or = 4.0); Prostate Specific Antigen Scr 0.88 ng/mL (<0.05-4.0); Vitamin B12 389 pg/mL (200-900)
[2024-03-25 06:20] LABS: Follicle Stimulating Hormone 8.6 mIU/mL (1.4-12.8); Lutenizing Hormone 8.1 mIU/mL (1.5-9.3)
[2024-03-25 17:19] LABS: Homocysteine 15.1 umol/L (<11.4)
[2024-03-30 20:44] LABS: Estradiol Ultra Sensitive 19 pg/mL (< OR = 29)
[2024-03-31 04:08] LABS: Dihydrotestosterone 24 ng/dL (12-65)
[2024-04-15 14:58] LABS: Testosterone, Free 33.3 pg/mL (35.0-155.0); Testosterone, Total 170 ng/dL (250-1100)
== END 2024-03-24 13:49 | disposition home or self-care (01) ==
LOC: HO.LAB 13:48
PROVIDERS: Physician Assistant; PCP Internal Medicine; Visit Provider Internal Medicine
DX: Z12.5 Encounter for screening for malignant neoplasm of prostate (principal); E03.9 Hypothyroidism, unspecified; E29.1 Testicular hypofunction; E61.1 Iron deficiency; D51.9 Vitamin B12 deficiency anemia, unspecified; D64.9 Anemia, unspecified; K76.0 Fatty (change of) liver, not elsewhere classified; R53.83 Other fatigue; R97.20 Elevated prostate specific antigen [PSA]; I10 Essential (primary) hypertension; E78.00 Pure hypercholesterolemia, unspecified
CPT/HCPCS: 36415; 80053; 80061; 82306; 82607; 82642; 82670; 82746; 83001; 83002; 83090; 83525; 84153; 84402; 84403; 84439; 84443; 85025; 85027

== ENCOUNTER 2025-08-22 13:24 | Outpatient (AMB) | payer OTHER, SELFPAY ==
[2025-08-22 13:39] VITALS: BP 114/78; PULSE 89; O2SAT 96; BMI 28.9
--- NOTE | 2025-08-22 13:39 | MHC.OFFVIS ---
Vital Signs 08/22/25 13:39 Height 5 ft 11 in Weight 207 lb 8 oz BMI 28.9 BP 114/78 Blood Pressure Location Lt brachial Position Sitting Pulse 89 Pulse Source Pulse Oximeter Pulse Oximetry (%) 96 Oxygen Delivery Method Room Air Intake Visit Reasons: Obstructive sleep apnea Allergies No Known Allergies (No Known Allergies*) Allergy (Verified 08/22/25 13:42) HPI HPI Obstructive sleep apnea: Details: James is pleasant 54-year-old male, never smoker with underlying obstructive sleep apnea and hypertension. He was referred by PCP for pulmonary evaluation to discuss the Inspire device. He reports prior sleep study 7-8 years ago which revealed severe sleep apnea however could not confirm as no prior records available. He has been using CPAP therapy inconsistently however notes when he does use he has significant improvements in non restorative sleep and daytime fatigue. DME is [employer]. At this time he denies any respiratory symptoms. [facility] Medical History (Updated 08/22/25 @ 21:53 by Melissa Goodwin NP) HTN (hypertension) Obstructive sleep apnea on CPAP Spasm of back muscles Surgical History Hx of bilateral inguinal hernia repair History of repair of ACL Social History Alcohol intake: current Alcohol intake frequency: a few times a week Patient Tobacco Use Status: Never used Tobacco Review of Systems Const Denies chills, Denies excessive sweating, Denies fever(s), Denies headache(s) and Denies night sweats Eyes Denies dry eyes, Denies irritation and Denies itchy eyes ENT Reports Normal hearing present, Denies headache(s), Denies nasal congestion, Denies nasal discharge, Denies post nasal drip and Denies sore throat Card Denies chest pain, Denies chest pain at rest, Denies chest pain with activity, Denies claudication, Denies leg edema, Denies dyspnea, Denies dyspnea on exertion, Denies orthopnea and Denies paroxysmal nocturnal dyspnea Resp Denies chest congestion, Denies cough, Denies excessive phlegm production, Denies pain on inspiration, Denies pain with cough, Denies dyspnea, Denies dyspnea on exertion, Denies stridor and Denies wheezing Musc Denies myalgias Neuro Reports Normal hearing present and Denies headache(s) Endo Denies excessive sweating Juan/Lymph Denies lymphadenopathy Aller/Immun Denies itchy eyes, Denies seasonal rhinorrhea and Denies wheezing Physical Exam Vital Signs: Last Vital Signs Pulse 89 08/22/25 13:39 BP 114/78 08/22/25 13:39 Pulse Ox 96 08/22/25 13:39 Oxygen Delivery Method Room Air 08/22/25 13:39 BMI result Body Mass Index 28.9 Const General: cooperative, healthy appearing, comfortable, no acute distress, well developed and alert Orientation/consciousness: patient oriented x3 Limitations: no limitations HEENT Head: Yes normal to inspection, Yes normocephalic and Yes atraumatic Ears: hearing grossly normal bilaterally and external ears normal Eyes General: appearance normal, both eyes and all related structures Eyelids: Yes eyelids normal Sclerae: sclerae normal EOM: EOMs intact bilaterally Neck Neck: Yes normal visual inspection and Yes no lymphadenopathy Lymphatic: no lymphadenopathy noted Chest Chest palpation & inspection: normal inspection of the chest Resp Effort & Inspection: normal respiratory effort, able to speak in complete sentences, no audible wheezes, no cough, no stridor, not tachypneic, no tripod positioning and no use of accessory muscles Auscultation: clear to auscultation bilaterally Cardio Jugular venous distension: no JVD Rate: regular rate Rhythm: regular rhythm Skin Other: warm, dry General skin exam: no rashes or lesions noted Neuro General: patient oriented x3 Cranial nerves: Yes Normal hearing present Cognition (Neuro): normal cognition Gait exam (Neuro): Normal gait present Extrem General: Yes normal to inspection, Yes capillary refill normal, Yes no clubbing, cyanosis or edema and Yes no pedal edema Psych Appearance: grossly normal and well kempt Speech and movement: Normal speech and movement present and Clear speech present Affect: normal affect Attitude: cooperative Thought process: Normal thought process present Thought content: Normal thought content present Insight: Good insight present (Psych) Judgement: Good judgement present (Psych) Assessment & Plan Assessment & Plan (1) Obstructive sleep apnea: Code(s): G47.33 - Obstructive sleep apnea (adult) (pediatric) Category: Medical (2) Non-restorative sleep: Code(s): G47.8 - Other sleep disorders Category: Medical (3) Daytime somnolence: Code(s): R40.0 - Somnolence Category: Medical Plan Will send for home sleep study to reestablish diagnosis of OH given prior h/o severe OH. Consideration of a dental device as an alternative to CPAP therapy was discussed, as well as referral for the Inspire device. Lifestyle modifications, including avoiding alcohol and not sleeping on the back, were recommended to help reduce the severity of symptoms. If continues with severe OH and would like to consider CPAP therapy may need in lab titration study to ensure optimal pressures. All questions were answered and patient is in agreement of plan. Will follow up to review results or sooner if needed. Orders: Orders RT home sleep study Today G47.8 - Other sleep disorders, R40.0 - Somnolence Coding Level of Care Code New Pt Level 3 (53579) Diagnoses Obstructive sleep apnea G47.33 Non-restorative sleep G47.8 Daytime somnolence R40.0
--- OUTSIDE RECORDS SUMMARY | 2025-08-22 14:42 | XMS_ITS | Clinical Summary ---
Author Organization [facility] [address] [place] [address] Address [address] [place] [address] Phone Care Team Providers Care Sustainability Coach Name Role Phone Stephane Smith MD Primary Care Provider Allergies No known active allergies Medications atorvastatin (LIPITOR) 10 mg tablet Take 1 tablet (10 mg total) by mouth 1 (one) time each day. 11/08/20 24 Active clobetasoL 0.05 % shampoo Apply 1 mL topically 1 (one) time each day if needed (rash/scalp psoriasis). 118 mL 1 08/01/20 25 Active sildenafiL (VIAGRA) 50 mg tablet Take 1 tablet (50 mg total) by mouth if needed for erectile dysfunction. 10 tablet 2 08/01/20 25 Active lisinopriL (PRINIVIL,ZEST RIL) 30 mg tablet Take 1 tablet (30 mg total) by mouth 1 (one) time each day. 90 each 08/01/20 25 025 Active lisinopriL (PRINIVIL,ZEST RIL) 20 mg tablet Take 1 tablet (20 mg total) by mouth 1 (one) time each day. 11/08/20 24 025 Discontinued sildenafiL (VIAGRA) 50 mg tablet Take 1 tablet (50 mg total) by mouth. TAKE 1 TABLET BY MOUTH EVERY 72 HOURS NEEDED. 01/11/20 25 025 Discontinued(Re order) clobetasoL 0.05 % shampoo Apply 1 mL topically 1 (one) time each day if needed (rash/scalp psoriasis). 118 mL 1 02/04/20 25 025 Discontinued(Re order) Active Problems Problem Noted Date Diagnosed Date Hyperlipidemia 02/03/2025 Primary hypertension 02/03/2025 Encounters Date Type Department Care Team Description 08/01/2025 7:45 AM EDT Office Visit Adult [address] [phone] Stephane Smith MD Skin rash (Primary Dx); Prediabetes; Primary hypertension; Overweight (BMI 25.0-29.9); Hyperlipidemia, unspecified hyperlipidemia type; Family history of diabetes mellitus from Last 3 Months Immunizations Immunization Administration Dates Next Due Pneumococcal conjugate 20 va lent (Prevnar 20, PCV 20) 2mo and older 02/03/2025 Social History Tobacco Use Types Packs/Day Years Used Date Smoking Tobacco: Never Assessed Sex and Gender Information Value Date Recorded Sex Assigned at Not on file Legal Sex Male 2:04 PM EDT Gender Identity Not on file Sexual Orientation Not on file Last Filed Vital Signs Vital Sign Reading Time Taken Comments Blood Pressure 132/90 08/01/2025 8:19 AM EDT Pulse 91 08/01/2025 7:56 AM EDT Temperature 35.6 C (96 F) 08/01/2025 7:56 AM EDT Respiratory Rate 12 08/01/2025 7:56 AM EDT Oxygen Saturation - - Inhaled Oxygen Concentration - - Weight 90.7 kg (200 lb) 08/01/2025 7:56 AM EDT Height 180.3 cm (5' 11 ) 08/01/2025 7:56 AM EDT Body Mass Index 27.89 08/01/2025 7:56 AM EDT Plan of Treatment Upcoming Encounters Date Type Department Care Team (Late st Contact Info) Description 11/10/2025 7:45 AM EST Office Visit [address] [phone] Stephane Smith MD [address] [place] [address] Health Maintenance Due Date Last Done Comments Depression Screening 11/23/2024 COVID-19 Vaccine (26 season) 2025 10/12/2023, 09/17/2022, 01/01/2021, Additional history exists Influenza Vaccine (#1) 2025 , 09/17/2022, 09/05/2016 Hepatitis B Vaccines (1 of 3 - 19+ 3-dose series) 11/22/2025 Postponed from 1990 (Patient Refused) DTaP,Tdap,and Td Vaccines (1 - Tdap) 11/23/2025 Postponed from 1990 (Patient Refused) HIV Screening 11/23/2025 Postponed from 09/10/2024 (Patient Refused) Zoster Vaccines (2 of 2) 11/23/2025 09/17/2022 Pos tponed from 11/12/2022 (Patient Refused) Hypertension/CHF/CAD Annual BMP Blood Test 02/03/2026 02/03/2025, 02/03/2025 Social Influencers of Health Screening 02/03/2026 02/03/2025 Cholesterol Screening (Lipid Panel) 02/03/2030 02/03/2025 Colorectal Cancer Screening: Colonoscopy 11/23/2032 Postponed from 09/10/2024 (Not clinically appropriate to address at this time) Hepatitis C Screening Completed 02/03/2025 Pneumococcal Vaccine: 50+ Years Completed 02/03/2025 HIB Vaccines Aged Out No longer eligi ble based on patient's age to complete this topic HPV Vaccines Aged Out No longer eligi ble based on patient's age to complete this topic Hepatitis A Vaccines Aged Out No long er eligible based on patient's age to complete this topic IPV Vaccines Aged Out No longer eligi ble based on patient's age to complete this topic MMR Vaccines Aged Out No longer eligi ble based on patient's age to complete this topic Meningococcal ACWY Vaccine Aged Out N o longer eligible based on patient's age to complete this topic Meningococcal B Vaccine Aged Out No l onger eligible based on patient's age to complete this topic RSV Immunization Patients Under 20 months Aged Out No longer eligible b ased on patient's age to complete this topic Varicella Vaccines Aged Out No longer eligible based on patient's age to complete this topic Procedures Procedure Name Priority Date/Time Associated Diagnosis Comments HEPATITIS PANEL, ACUTE WITH REFLEX TO CONFIRMATION Routine 02/03/2025 11:40 AM EDT Annual physical exam COMPREHENSIVE METABOLIC PANEL Routine 02/03/2025 11:40 AM EDT Annual physical exam LIPID PANEL WITH REFLEX TO DIRECT LDL Routine 02/03/2025 11:40 AM EDT Annual physical exam from Last 3 Months or Most Recently Relevant to Health Maintenance Results * Lipid panel with reflex to direct LDL (02/03/2025 11:40 AM EDT) Cholesterol 190 0 - 200 mg/dL LAB CHEMISTRY METHOD 02/03/2025 3:25 PM EDT [facility] Triglycerides 93 0 - 150 mg/dL LAB CHEMISTRY METHOD 02/03/2025 3:25 PM EDT [facility] HDL 75 >=40 mg/dL LAB CHEMISTRY METHOD 02/03/2025 3:25 PM EDT [facility] LDL Calculated 96 0 - 100 mg/dL LAB CHEMISTRY METHOD 02/03/2025 3:25 PM EDT [facility] VLDL Cholesterol Carlos Manuel 18.6 mg/dL LAB CHEMISTRY METHOD 02/03/2025 3:25 PM EDT [facility] Non HDL Chol. (LDL+VLDL) 115 <145 mg/dL LAB CHEMISTRY METHOD 02/03/2025 3:25 PM EDT [facility] Chol/HDL Ratio 2.5 0.0 - 4.4 LAB CHEMISTRY METHOD 02/03/2025 3:25 PM EDT [facility] Blood Venous blood specimen / Unknown Venipuncture / Unknown 02/03/2025 11:40 AM EDT 02/03/2025 11:40 AM EDT us Stephane Smith MD LAB BLOOD ORDERABLES Final Result [facility] [address] [place] [address], [place] [phone] * Hepatitis panel, acute with reflex to confirmation (02/03/2025 11:40 AM EDT) Pathologist [facility] Hepatitis B Surface Ag Negative Negative LAB CHEMISTRY METHOD 02/03/2025 4:06 PM EDT [facility] Hepatitis A Antibody IgM Negative Negative LAB CHEMISTRY METHOD 02/03/2025 4:06 PM EDT [facility] Hep B Core IgM Negative Negative LAB CHEMISTRY METHOD 02/03/2025 4:06 PM EDT [facility] Hepatitis C Antibody Negative Negative LAB CHEMISTRY METHOD 02/03/2025 4:06 PM EDT [facility] Blood Venous blood specimen / Unknown Venipuncture / Unknown 02/03/2025 11:40 AM EDT 02/03/2025 11:40 AM EDT us Stephane Smith MD LAB BLOOD ORDERABLES Final Result [facility] [address] [place] [address], [place] [phone] * (ABNORMAL) Comprehensive metabolic panel (02/03/2025 11:40 AM EDT) Pathologist [facility] Sodium 139 133 - 145 mmol/L LAB CHEMISTRY METHOD 02/03/2025 3:25 PM [facility] Potassium 4.3 3.5 - 5.5 mmol/L LAB CHEMISTRY METHOD 02/03/2025 3:25 PM [facility] Chloride 105 96 - 110 mmol/L LAB CHEMISTRY METHOD 02/03/2025 3:25 PM T [facility] CO2 24 21 - 32 mmol/L LAB CHEMISTRY METHOD 02/03/2025 3:25 PM [facility] Anion Gap 10 3 - 11 LAB CHEMISTRY METHOD 02/03/2025 3:25 PM EDT [facility] Glucose 105(H) 70 - 100 mg/dL LAB CHEMISTRY METHOD 02/03/2025 3:25 PM [facility] BUN 10 5 - 25 mg/dL LAB CHEMISTRY METHOD 02/03/2025 3:25 PM [facility] Creatinine 1.09 0.70 - 1.30 mg/dL LAB CHEMISTRY METHOD 02/03/2025 3:25 PM [facility] eGFR 81 >=60 mL/min/1. 73m2 LAB CHEMISTRY METHOD 02/03/2025 3:25 PM [facility] Comment:Calculation based on the Chronic Kidney Disease Epidemiology Collaboration (CKD-EPI) equation refit without adjustment for race. BUN/Creatinine Ratio 9.2 LAB CHEMISTRY METHOD 02/03/2025 3:25 PM [facility] Calcium 9.5 8.5 - 10.5 mg/dL LAB CHEMISTRY METHOD 02/03/2025 3:25 PM [facility] AST (SGOT) 22 10 - 42 unit/L LAB CHEMISTRY METHOD 02/03/2025 3:25 PM [facility] ALT (SGPT) 31 10 - 60 unit/L LAB CHEMISTRY METHOD 02/03/2025 3:25 PM [facility] Alkaline Phosphatase 48 42 - 121 unit/L LAB CHEMISTRY METHOD 02/03/2025 3:25 PM [facility] Total Protein 7.5 6.0 - 8.0 g/dL LAB CHEMISTRY METHOD 02/03/2025 3:25 PM [facility] Albumin 4.4 3.2 - 5.0 g/dL LAB CHEMISTRY METHOD 02/03/2025 3:25 PM [facility] Total Bilirubin 0.9 0.0 - 1.4 mg/dL LAB CHEMISTRY METHOD 02/03/2025 3:25 PM [facility] Blood Venous blood specimen / Unknown Venipuncture / Unknown 02/03/2025 11:40 AM EDT 02/03/2025 11:40 AM EDT Stephane Smith MD LAB BLOOD ORDERABLES Final Result [facility] ([facility]) [facility] [address] [place] [address], from Last 3 Months or Most Recently Relevant to Health Maintenance Insurance [employer] [place] [id number] Care Teams Sustainability Coach Relationship Specialty Start Date End Date Stephane Smith MD [address] [facility] [place] [address] PCP - General Internal Medicine 09/10/24
--- OUTSIDE RECORDS SUMMARY | 2025-08-22 14:42 | XMS_ITS | Clinical Summary ---
Author Organization [facility]erg[facility] With [facility] Address [address] [place] [address] Phone Care Team Providers Care Soft Mud Molder Name Role Phone Pcp, Unknown Primary Care Provider Unavailabl e Social History Tobacco Use Types Packs/Day Years Used Date Smoking Tobacco: Never Assessed Education Answer Date Recorded Are you interested in more education? Not on kindra e 03/20/2023 Are you concerned about learning? Not on file 03/20/2023 No 03/20/2023 No 03/20/2023 Digital Access Answer Date Recorded No 04/18/2023 No 04/18/2023 No 04/18/2023 Reliable internet access at home? Not on file 04/18/2023 Device with a working camera? Not on file Sex and Gender Information Value Date Recorded Sex Assigned at Not on file Legal Sex Male 9:33 PM EDT Gender Identity Not on file Sexual Orientation Not on file Plan of Treatment Health Maintenance Due Date Last Done Comments Adult Td,Tdap Booster 1971 LIPID PANEL 1971 DEPRESSION SCREENING 1983 SMOKING Hx and SMOKELESS TOBACCO SCREENING 1984 HEPATITIS C SCREENING 1989 HIV ONE-TIME SCREENING (18-6 5 YEARS) 1989 COLOGUARD 2016 COLONOSCOPY 2016 COLORECTAL CANCER SCREENING 2016 FIT TEST 2016 FOBT 2016 SIGMOIDOSCOPY 2016 VIRTUAL COLONOSCOPY 2016 PNEUMOCOCCAL VACCINES (50+ years) (1 of 1 - PCV) 2021 ZOSTER VACCINES (1 of 2) 2021 INFLUENZA VACCINE (#1) 2025 09/05/2016 COVID-19 VACCINE (3 - 2024-2 6 season) 2025 01/01/2021, 12/04/2020 HEPATITIS A VACCINES Aged Out No long er eligible based on patient's age to complete this topic HIB VACCINES Aged Out No longer eligi ble based on patient's age to complete this topic MENINGOCOCCAL VACCINES (ACWY) Aged Out No longer eligible based on patient's age to complete this topic MENINGOCOCCAL VACCINES (B) Aged Out N o longer eligible based on patient's age to complete this topic Medical Devices Not on file Insurance [address] [place], [place] [id number] [facility] [place] [address] [place] [address] [place] [address] [place] [address] [address] HMO Care Teams Soft Mud Molder Relationship Specialty Start Date End Date Pcp, Unknown PCP - General 07/23/20 Additional Source Comments The information contained in this document represents components of the legal health record. It is not the complete legal health record.[facility]
--- OUTSIDE RECORDS SUMMARY | 2025-08-22 14:42 | XMS_ITS | Clinical Summary ---
Author Organization [facility] Address [address] [place] [address] Care Team Providers Care Behavior Specialist Name Role Phone Unavailable Primary Care Provider Unavailabl e Social History Tobacco Use Types Packs/Day Years Used Date Smoking Tobacco: Never Assessed Interpersonal Safety Answer Date Record ed Physically Hurt Never 11/28/2020 Verbally Threaten Not on file 11/28/2020 Sex and Gender Information Value Date Recorded Sex Assigned at Not on file Legal Sex Male 7:37 EST Gender Identity Not on file Sexual Orientation Not on file Plan of Treatment Health Maintenance Due Date Last Done Comments Hepatitis C Screen 1971 Hepatitis B Vaccine (1 of 3 - 19+ 3-dose series) 11/26 COVID-19 Vaccine ( - 2023- season) 2024
--- OUTSIDE RECORDS SUMMARY | 2025-08-22 14:42 | XMS_ITS | Encounter Summary ---
Author Organization [facility] Address [address] [place] [address] Care Team Providers Care Script Worker Name Role Phone Unavailable Primary Care Provider Unavailabl e Encounter Details Date Type Department Care Team (Late st Contact Info) Description 2020 Lab Requisition [facility] Pathology & Laboratory Medicine - [facility] [address] [place] [address] Outr Resulting Lab, Provider Social History Tobacco Use Types Packs/Day Years Used Date Smoking Tobacco: Never Assessed Interpersonal Safety Answer Date Record ed Physically Hurt Never 11/28/2020 Verbally Threaten Not on file 11/28/2020 Sex and Gender Information Value Date Recorded Sex Assigned at Not on file Legal Sex Male 7:37 EST Gender Identity Not on file Sexual Orientation Not on file documented as of this encounter Plan of Treatment Not on file documented as of this encounter Procedures Procedure Name Priority Date/Time Associated Diagnosis Comments DO NOT ORDER STANDALONE - BROAD COVID TEST Today 11/25/2020 15:14 EST COVID-19 TESTING Routine 11/25/2020 15:1 4 EST documented in this encounter Results * (ABNORMAL) DO NOT ORDER STANDALONE - BROAD COVID TEST (11/25/2020 15:14 EST) COVID-19 rt-PCR Result POSITIVE( AA) Negative 11/27/2020 23:27 EST [facility] Comment: Positive for detection of 2019-novel Coronavirus (2019-nCoV) by qRT-PCR. Limitations Positive results are indicative of active infection with SARS-CoV-2 but do not rule out bacterial infection or co-infection with other viruses. The agent detected may not be the definite cause of disease. In addition, detection of viral RNA may not indicate the presence of infectious virus or that SARS-CoV-2 is the causative agent for clinical symptoms. Negative results do not preclude SARS-CoV-2 infection and should not be used as the sole basis for patient management decisions. Negative results must be combined with clinical observations, patient history, and epidemiological information. False negative results may also occur if amplification inhibitors are present in the specimen or if inadequate numbers of organisms are present in the specimen. Optimum specimen types and timing for peak viral levels during infections caused by SARS-CoV-2 have not been fully determined. Collection of multiple specimens (types and time points) from the same patient may be necessary to detect the virus. The test was validated for use with upper respiratory specimens obtained via nasopharyngeal or oropharyngeal swabs in VTM, UTM, M4, M5, M6, saline, and MTM media. The performance of this test has not been established for other specimens. Specimens collected using other FDA recommended Specimen Collection Materials listed in the FDA COVID-[employer] communication (February 16, 2020) are processed with the caveat that they were not all validated for use with this test and the result must be interpreted in this context. Furthermore, a false negative results may occur if a specimen is improperly collected, transported or handled. If the virus mutates in the RT-PCR target region, SARS-CoV-2 may not be detected or may be detected less predictably. Inhibitors or other types of interference may produce a false negative result. An interference study evaluating the effect of common cold medications was not performed. This test is not FDA-cleared but its performance characteristics were established by our CLIA-certified, CAP-accredited, high complexity laboratory in accordance with CLIA regulations, [employer] (CAP) guidelines (Feb 09, 2020), and FDA guidance (Jan 21, 2020). This test is only for use under the Food and Drug Administration's Emergency Use Authorization. Swab ENTIRE NASOPHARYNX / Unknown 11/25/2020 15:14 EST 2020 22:51 EST us Provider Outr Resulting Lab MICROBIOLOGY - GENER AL ORDERABLES Final Result [place] * (ABNORMAL) COVID-19 TESTING (11/25/2020 15:14 EST) [facility] COVID-19 rt-PCR Result POSITIVE(AA) Negative 11/28/2020 0:12 EST [facility] Comment: Positive for detection of 2019-novel Coronavirus (2019-nCoV) by qRT-PCR. Limitations Positive results are indicative of active infection with SARS-CoV-2 but do not rule out bacterial infection or co-infection with other viruses. The agent detected may not be the definite cause of disease. In addition, detection of viral RNA may not indicate the presence of infectious virus or that SARS-CoV-2 is the causative agent for clinical symptoms. Negative results do not preclude SARS-CoV-2 infection and should not be used as the sole basis for patient management decisions. Negative results must be combined with clinical observations, patient history, and epidemiological information. False negative results may also occur if amplification inhibitors are present in the specimen or if inadequate numbers of organisms are present in the specimen. Optimum specimen types and timing for peak viral levels during infections caused by SARS-CoV-2 have not been fully determined. Collection of multiple specimens (types and time points) from the same patient may be necessary to detect the virus. The test was validated for use with upper respiratory specimens obtained via nasopharyngeal or oropharyngeal swabs in VTM, UTM, M4, M5, M6, saline, and MTM media. The performance of this test has not been established for other specimens. Specimens collected using other FDA recommended Specimen Collection Materials listed in the FDA COVID-19 [employer] communication (February 16, 2020) are processed with the caveat that they were not all validated for use with this test and the result must be interpreted in this context. Furthermore, a false negative results may occur if a specimen is improperly collected, transported or handled. If the virus mutates in the RT-PCR target region, SARS-CoV-2 may not be detected or may be detected less predictably. Inhibitors or other types of interference may produce a false negative result. An interference study evaluating the effect of common cold medications was not performed. This test is not FDA-cleared but its performance characteristics were established by our CLIA-certified, CAP-accredited, high complexity laboratory in accordance with CLIA regulations, [employer] (CAP) guidelines (Feb 09, 2020), and FDA guidance (Jan 21, 2020). This test is only for use under the Food and Drug Administration's Emergency Use Authorization. Performing Lab [facility] 11/28/2020 0:12 EST [facility] Swab 11/25/2020 15:1 4 EST 2020 22:51 EST us Provider Outr Resulting Lab MICROBIOLOGY - GENER AL ORDERABLES Final Result [facility] [address] [place], [place] [id number] [place] [address] LABORATORY [place], [place] documented in this encounter Visit Diagnoses Not on filedocumented in this encounter Additional Health Concerns Infection Onset Date Last Indicated Resolved Time COVID-19 11/25/2020 11/25/2020 12/25/2020 22:1 5 EST documented as of this encounter
== END 2025-08-22 14:46 | disposition home or self-care (01) ==
LOC: HO.HPSW 13:25
PROVIDERS: PCP Internal Medicine; Referring Provider Internal Medicine; Visit Provider Nurse Practitioner Family
DX: G47.33 Obstructive sleep apnea (adult) (pediatric) (principal); G47.8 Other sleep disorders; R40.0 Somnolence
CPT/HCPCS: 99203